=== PATIENT | female | born 1945 | race Caucasian/White ===

== ENCOUNTER 2022-01-09 10:02 | Inpatient (IN) | payer MEDICARE, SELFPAY ==
[2022-01-09] VITALS (40 sets, daily range): BP systolic 77–121; BP diastolic 32–105; PULSE 56–139; RESP 15–35; TEMP 35.6–38.1; O2SAT 89–97
--- NOTE | 2022-01-09 10:00 | DI.RAD_ITS ---
Exam(s) XR PORTABLE CHEST AP EXAM: XR PORTABLE CHEST AP CLINICAL HISTORY: cough, COVID + TECHNIQUE: 2D digital imaging was performed of the chest. Two images were obtained. AP views were obtained. COMPARISON: No exams were available for comparison FINDINGS: MEDIASTINUM: Normal. HEART: Normal. PULMONARY VASCULATURE: Normal. LUNGS: There infiltrates seen in the lower lobes, right greater than left. PLEURAL SPACE: No pleural effusion or pneumothorax. BONE:Within normal limits for the patient's age. OTHER FINDINGS:Normal. IMPRESSION: Bilateral pulmonary infiltrates suspicious for pneumonia. DATA REPOSITORY: RADIATION DOSE DELIVERED:
--- NOTE | 2022-01-09 10:15 | RT.EKG_ITS ---
APPROVED REPORT Exam: Resting ECG Reason for Exam: sob Patient Location: E HR:75 bpm ECG Measurements Heart Rate 75 AXIS OK 128 P 9 QRSd 87 QRS 60 QT 412 T 98 QTc 459 Conclusion Sinus rhythm. Atrial premature complexes.. Low voltage, extremity leads. Nonspecific changes
--- NOTE | 2022-01-09 10:16 | W.ED.GENAD ---
Discharge Plan Disposition Patient Disposition: [facility] INPATIENT Condition: Improving Discharge Details Clinical Impression: Pneumonia due to COVID-19 virus Primary Care Provider: Unknown,Unknown ED Provider: Gold Waters Home Meds and New Rx's Prescriptions: No Action venlafaxine [Effexor] 75 mg Tablet 75 mg PO DAILY trazodone 50 mg Tablet 50 mg PO DAILY amiodarone 200 mg Tablet 200 mg PO DAILY montelukast 10 mg Tablet 10 mg PO DAILY furosemide 20 mg Tablet 20 mg PO DAILY gabapentin 300 mg Tablet 300 mg PO BID Eliquis 5 mg Tablet 5 mg PO BID metoprolol succinate 25 mg Capsule,Sprinkle,Er 24hr 25 mg PO DAILY Medical Decision Making 76-year-old female DuoNeb with a history of COPD, states she has 3 L of oxygen at home at nighttime but not during the day. She is visiting from her home in [place]. She is not vaccinated for COVID . She has noted 3 days of cough with congestion and mild production of sputum. Today noted increased shortness of breath, she called the ambulance who noted hypoxia, placed on 6 L of oxygen and administered a DuoNeb with improvement. Patient arrives with temperature of 38.1. She is normotensive with a pulse in the 80s with elevated respiratory rate approximately 28-30 and a room air oxygenation of 91%. She is placed on 2 L nasal cannula. IV access established, screening labs including viral screen obtained. She is given DuoNeb updraft, Solu-Medrol, acetaminophen, fluids, and referred for chest x-ray. Patient states to me she has a history of COPD on 3 L home oxygen at night, and A. fib for which she is on Eliquis and amiodarone. She is currently in sinus rhythm. Chest x-ray reveals bilateral pulmonary infiltrates consistent with pneumonia. The patient's COVID test is positive. She has a white count of 12.5. Renal function is reassuring as are the remainder of her chemistries. She is somewhat improved with steroid and DuoNeb therapy, but has ongoing mild oxygen requirement of 1 L. Will discuss admission with hospitalist team. HPI General Mode of arrival: EMS. Date/Time Provider Initiated Documentation: 01/09/22 10:14. Limitations to Documentation: no limitations. Information obtained by: patient and EMS. History of Present Illness 76 year old F presents to the emergency department with the chief complaint of 3 days of cough, shortness of breath, positive COVID this am, described as moderate, and is localized to the chest. Patient reports no radiation. Patient started experiencing this day(s) and it has been intermittent. Rest improves symptom(s), Movement worsens symptoms . Patient notes cough, fever/chills and shortness of breath; denies chest pain, headaches, loss of appetite, nausea/vomiting, syncope and weakness. Patient did receive the following treatments prior to arrival, other (DuoNeb updraft in ambulance) Related Data Home Medications Medication Instructions Recorded Confirmed amiodarone 200 mg tablet 200 mg PO DAILY 01/09/22 01/09/22 apixaban 5 mg tablet (Eliquis) 5 mg PO BID 01/09/22 01/09/22 furosemide 20 mg tablet 20 mg PO DAILY 01/09/22 01/09/22 gabapentin 300 mg tablet 300 mg PO BID 01/09/22 01/09/22 metoprolol succinate 25 mg capsule 25 mg PO DAILY 01/09/22 01/09/22 sprinkle, ext. release 24 hr montelukast 10 mg tablet 10 mg PO DAILY 01/09/22 01/09/22 trazodone 50 mg tablet 50 mg PO DAILY 01/09/22 01/09/22 venlafaxine 75 mg tablet 75 mg PO DAILY 01/09/22 01/09/22 Allergies Allergy/AdvReac Type Severity Reaction Status Date / Time No Known Allergies Allergy Unverified 01/09/22 10:14 General Stated Complaint: SOB DONOVAN: 2 Review of Systems Narrative: Not immunized for COVID. Lives in the [facility] [place]. Has history of A. fib, on Eliquis, history of COPD. See HPI. 8 systems reviewed and otherwise negative PFSH All Active Problems (Updated 01/09/22 @ 13:35 by Gold Waters MD) Pneumonia due to COVID-19 virus (Acute) Social History Smoking/Tobacco Use Status: Never Smoking risk assessment performed?: Yes Drug use: Never Substance use type: does not use Do you feel safe at home: Yes Do you feel safe in your relationship?: Yes Exam Narrative Exam Narrative: GEN: awake, alert, oriented 3. Pleasant, well groomed, interactive. HEAD: Normocephalic, atraumatic ENT: Mucous membranes moist, oropharynx unremarkable, External ear exam unremarkable EYES: PERRL, EOMI NECK: Full ROM, no GALO, no menigismus CHEST/RESP: Nontender, cough noted, end expiratory wheeze present bilat CARDIOVASCULAR: RRR, no murmur, rub wes. 2+ Rad pulse bilateral ABDOMEN: Soft, nontender, no mass. +Bowel sounds EXT: Full ROM, no edema, no rash Neuro: Grossly normal neurologic exam, conversant, interactive. Psych: Speech fluent, thoughts congruent, affect normal Course Vital Signs Vital signs: Vital Signs Temperature 38.1 C H 01/09/22 10:10 Pulse 80 01/09/22 10:10 Respiratory Rate 29 H 01/09/22 10:10 Blood Pressure 121/105 H 01/09/22 10:10 Pulse Oximetry 93 01/09/22 10:10 Temperature 38.1 C H 01/09/22 10:10 Temperature Source Skin 01/09/22 10:10 Pulse 80 01/09/22 10:10 Respiratory Rate 29 H 01/09/22 10:10 Blood Pressure 121/105 H 01/09/22 10:10 Blood Pressure Position Supine 01/09/22 10:10 Pulse Oximetry 93 01/09/22 10:10 Oxygen Delivery Method Nasal Cannula 01/09/22 10:10 Oxygen Flow Rate 2 01/09/22 10:10 Pain Level 8 01/09/22 10:10 Comment 01/09/22 10:10
[2022-01-09] MEDS: methylPREDNISolone SUCC 125 MG VIAL IVP (10:34)
[2022-01-09] MEDS: Normal Saline 1,000 ML 1000 ML IV (10:34)
[2022-01-09] MEDS: Acetaminophen 325 MG TAB 650 MG PO (10:35)
[2022-01-09] MEDS: Albuterol/Ipratropium 3 ML UPD VIAL UPD (10:36)
[2022-01-09 10:38] LABS: Abs Immature Grans 0.14 10^3/uL (0.0-0.06); Absolute Basophil Count 0.04 10^3/uL (0.0-0.2); Absolute Eosinophil Count 0.04 10^3/uL (0.0-0.7); Absolute Lymphocyte Count 0.78 10^3/uL (1.2-3.4); Absolute Monocyte Count 1.09 10^3/uL (0.1-0.8); Basophils % 0.3; Eosinophils % 0.3; HCT 38.3 % (36.0-46.0); HGB 12.1 g/dL (11.2-15.7); Immature Grans % 1.1; Lymphocytes % 6.2; MCH 29.4 pg (27.0-33.0); MCHC 31.6 % (32.0-36.0); MCV 93 fL (80-95); MPV 8.7 fL (8.0-11.0); Monocytes % 8.7; Neutrophils % 83.4; Platelet Count 228 10^3/uL (130-400); RBC 4.11 10^6/uL (3.93-5.22); RDW 14.6 % (11.7-14.6); RDW-SD 49.8 fL; WBC 12.52 10^3/uL (4.4-10.8)
[2022-01-09 10:39] LABS: Absolute Neutrophil Count 10.44 10^3/uL (1.2-6.7)
[2022-01-09 11:01] LABS: ALT 21 U/L (14-59); AST 13 U/L (15-37); Alkaline Phosphatase 73 U/L (46-116); Anion Gap 7.2 mmol/L (3-11); BUN 17 mg/dL (7-18); Bilirubin, Total 0.4 mg/dL (0.2-1.0); CO2 30.8 mmol/L (21.0-32.0); Calcium 8.8 mg/dL (8.5-10.1); Chloride 105 mmol/L (98-107); Estimated GFR 54.05 (mL/min/1.73m2); Glucose 162 mg/dL (74-106); Magnesium 2.1 mg/dL (1.8-2.4); Potassium 3.9 mmol/L (3.5-5.1); Sodium 143 mmol/L (136-145); Total Protein 6.1 g/dL (6.4-8.2); Troponin I < 50 ng/L (<or=60)
[2022-01-09 11:17] LABS: Influenza A PCR Negative (Negative); Influenza B PCR Negative (Negative); RSV PCR Negative (Negative)
[2022-01-09 11:24] LABS: COVID-19 PCR Positive (Negative); Source Nasopharynx
--- NOTE | 2022-01-09 13:46 | W.PM.HP.N ---
Date of service: 01/09/22 Time of Service: 17:45 Assessment and Plan Assessment and plan (1) Pneumonia due to COVID-19 virus: Status: Acute Assessment and plan: Admit to medical surgical floor with remdesivir, dexamethasone, scheduled combivent + prn albuterol, guaifenesin, vitamin C, D, zinc. Consider statin. Patient is already anticoagulation with apixaban - continue. Encourage IS/acapella. Check/trend CRP, procalcitonin, ferritin, d-dimer. (2) Hypoxia: Status: Acute Assessment and plan: As above (3) Atrial fibrillation: Assessment and plan: in NSR; on amiodarone, metoprolol, apixaban. Continue home management with the exception of increased dose of apixaban given COVID-19. (4) CHF (congestive heart failure): Assessment and plan: Suspected. The patient is not sure of the diagnosis, but is on furosemide at home. Will avoid IV hydration. MOnitor volume status. (5) DVT prophylaxis: Status: Acute Assessment and plan: On therapeutic apixaban dose (was on 2.5 mg PO BID for Afib prior to admission) (6) Discharge planning issues: Status: Acute Assessment and plan: Full code as confirmed by conversation with the patient. History of Present Illness History of Present Illness Chief Complaint: Shortness of breath Narrative: Ms Tidwell is a 76 year old female with PMHx of oxygen-dependent COPD (on 3L of O2 at night), as well as h/o Afib on anticoagulation with eliquis and on amiodarone and metoprolol, chronic back pain, depression, not vaccinated against COVID-19, who is traveling from [place] and presented to [facility] ED today w/ 3 days of shortness of breath, cough (sometimes productive and sometimes not), rhinorrhea, headache, R-sided back pain (worse with coughing), subjective fevers. Reportedly, her O2 sats were in high 80s at home on RA and was quite tachypneic. She is now on 1L of O2 by [place]. She received duonebs with improvement in symptoms. She tested positive for COVID-19 and agrees to stay to receive treatment. She is full code. Review of Systems All systems reviewed & are unremarkable except as noted in HPI and below PFSH All Active Problems (Updated 01/09/22 @ 18:38 by Darshana Sutton MD) Discharge planning issues (Acute) DVT prophylaxis (Acute) Hypoxia (Acute) Pneumonia due to COVID-19 virus (Acute) Medical History (Updated 01/09/22 @ 18:38 by Darshana Sutton MD) Atrial fibrillation CHF (congestive heart failure) COPD (chronic obstructive pulmonary disease) Depression Neuropathy Surgical History (Updated 01/09/22 @ 18:38 by Darshana Sutton MD) History of back surgery S/P appendectomy S/P cholecystectomy S/P partial colectomy S/P total hysterectomy and BSO (bilateral salpingo-oophorectomy) Family History (Updated 01/09/22 @ 18:40 by Darshana Sutton MD) Sister Diabetes Cancer breast Brother Diabetes Brother Diabetes Brother Diabetes Mother Hypertension Cancer breast Social History (Updated 01/09/22 @ 18:42 by Darshana Sutton MD) Smoking/Tobacco Use Status: Former Tobacco Use tobacco type: cigarettes Pack-years: 56 Counseling given: provider counseling Smoking risk assessment performed?: Yes Alcohol Intake: current Alcohol Intake frequency: a few times a week Alcohol type: hard liquor Substance use type: former substance user Date of last use: marijuana and marijuana Do you feel safe at home: Yes Do you feel safe in your relationship?: Yes Meds Allergies and Home Medications Allergies Allergy/AdvReac Type Severity Reaction Status Date / Time No Known Allergies Allergy Unverified 01/09/22 10:14 Home Medications Medication Instructions Recorded Confirmed Type albuterol sulfate 2.5 mg/3 mL 2.5 mg inhalation Q6H PRN PRN 01/09/22 01/09/22 History (0.083 %) solution for nebulization Shortness Of Breath albuterol sulfate 90 mcg/actuation 2 inh inhalation Q4H PRN PRN 01/09/22 01/09/22 History aerosol inhaler amiodarone 200 mg tablet 200 mg PO DAILY 01/09/22 01/09/22 History apixaban 2.5 mg tablet (Eliquis) 2.5 mg PO BID 01/09/22 01/09/22 History fluticasone fur. 100 mcg-umeclid 1 ea inhalation DAILY 01/09/22 01/09/22 History 62.5 mcg-vilant 25 mcg inhalat.powder (Trelegy Ellipta) furosemide 20 mg tablet 20 mg PO DAILY 01/09/22 01/09/22 History gabapentin 300 mg capsule 600 mg PO QID 01/09/22 01/09/22 History metoprolol succinate 25 mg capsule 25 mg PO DAILY 01/09/22 01/09/22 History sprinkle, ext. release 24 hr montelukast 10 mg tablet 10 mg PO DAILY 01/09/22 01/09/22 History trazodone 50 mg tablet 50 mg PO HS 01/09/22 01/09/22 History venlafaxine 75 mg capsule,extended 75 mg PO DAILY 01/09/22 01/09/22 History release 24 hr Exam Narrative Exam Narrative: General: Pleasant forgetful elderly female who is not dyspneic, tachypneic or cyanotic on 1L of O2 by IA Neurological: A&Ox3, no focal deficits Psychiatric: Appropriate speech pattern/content Skin: Visible skin intact HEENT: Atraumatic, normocephalic, EOMI, dry MM, clear oropharynx, no submandibular or cervical lymphadenopathy, no goiter or JVD Cardiovascular: RRR, no m/r/g Lungs: coarse breath sounds B Gastrointestinal: soft, nontender, nondistended Genitourinary: deferred Extremities: no edema BLEs Results Imaging Additional studies: CXR: Bilateral pulmonary infiltrates suspicious for pneumonia.? EKG: NSR, PACs, HR 75, nonspecific ST-T changes, no acute ischemia Labs Result diagrams: 01/09/22 10:25 01/09/22 10:25 Labs: Laboratory Results - last 24 hr 01/09/22 01/09/22 01/09/22 10:25 10:25 10:25 WBC 12.52 H RBC 4.11 Hgb 12.1 Hct 38.3 MCV 93 MCH 29.4 MCHC 31.6 L RDW 14.6 Plt Count 228 MPV 8.7 Immature Gran % 1.1 Neutrophils % 83.4 Lymphocytes % 6.2 Monocytes % 8.7 Eosinophils % 0.3 Basophils % 0.3 Nucleated RBC % 0.0 Absolute Neutrophils 10.44 H Absolute Lymphocytes 0.78 L Absolute Monocytes 1.09 H Absolute Eosinophils 0.04 Absolute Basophils 0.04 PT 10.0 INR 1.0 Sodium 143 Potassium 3.9 Chloride 105 Carbon Dioxide 30.8 Anion Gap 7.2 BUN 17 Creatinine 1.0 Estimated GFR/1.73 m2 54.05 Glucose 162 H Calcium 8.8 Magnesium 2.1 Total Bilirubin 0.4 AST 13 L ALT 21 Alkaline Phosphatase 73 Troponin I < 50 Total Protein 6.1 L Albumin 3.0 L COVID-19 Source SARS-CoV-2 (PCR) Influenza Type A (PCR) Influenza Type B (PCR) RSV (PCR) 01/09/22 10:30 WBC RBC Hgb Hct MCV MCH MCHC RDW Plt Count MPV Immature Gran % Neutrophils % Lymphocytes % Monocytes % Eosinophils % Basophils % Nucleated RBC % Absolute Neutrophils Absolute Lymphocytes Absolute Monocytes Absolute Eosinophils Absolute Basophils PT INR Sodium Potassium Chloride Carbon Dioxide Anion Gap BUN Creatinine Estimated GFR/1.73 m2 Glucose Calcium Magnesium Total Bilirubin AST ALT Alkaline Phosphatase Troponin I Total Protein Albumin COVID-19 Source Nasopharynx SARS-CoV-2 (PCR) Positive A Influenza Type A (PCR) Negative Influenza Type B (PCR) Negative RSV (PCR) Negative Last Vital Signs Temp 38.1 C H 01/09/22 10:35 Pulse 67 01/09/22 13:02 Resp 23 01/09/22 13:02 BP 101/48 L 01/09/22 13:02 Pulse Ox 94 01/09/22 13:02
[2022-01-09 14:13] LABS: Lab Add On Test DONE; Troponin I < 50 ng/L (<or=60)
[2022-01-09] MEDS: REMDESIVIR 200 MG in Normal Saline 250 ML 250 MG IVPB (14:24)
[2022-01-09 14:29] LABS: C-Reactive Protein 13.14 mg/dL (0.0-0.3)
[2022-01-09 14:52] LABS: Ferritin 59 ng/mL (8-252)
[2022-01-09 15:13] LABS: D-Dimer 576 ng/mlFEU (<500)
[2022-01-09 16:22] LABS: Procalcitonin 0.2 ng/mL
[2022-01-09] MEDS: Acetaminophen 325 MG TAB PO (17:03)
[2022-01-09] MEDS: guaiFENesin 600 MG TABCR PO (20:56)
[2022-01-09] MEDS: Apixaban 5 MG TAB PO (20:56)
[2022-01-09] MEDS: Ascorbic Acid 500 MG TAB 1000 MG PO (20:56)
[2022-01-09] MEDS: Gabapentin 300 MG CAP 600 MG PO (20:58)
[2022-01-09] MEDS: Ipratropium/Albuterol 4 GM 120 PUFF INH IH (20:59)
[2022-01-09] MEDS: traZODone 50 MG TAB PO (23:03)
[2022-01-09] MEDS: Venlafaxine 75 MG CAPCR PO (23:03)
[2022-01-09] MEDS: Famotidine 20 MG TAB PO (23:03)
[2022-01-09] MEDS: Melatonin 3 MG TAB PO (23:03)
[2022-01-09] MEDS: Budesonide/Formoterol 80/4.5 6.9 GM 60 PUFF INH IH (23:45)
[2022-01-09] MEDS: diphenhydrAMINE 25 MG CAP PO (23:45)
[2022-01-10] VITALS (9 sets, daily range): BP systolic 106–140; BP diastolic 60–98; PULSE 48–74; RESP 16–18; TEMP 33.8–36.5; O2SAT 90–98
[2022-01-10] MEDS: Budesonide/Formoterol 80/4.5 6.9 GM 60 PUFF INH IH (07:42)
[2022-01-10] MEDS: Ipratropium/Albuterol 4 GM 120 PUFF INH IH ×2 (07:42→14:35)
--- NOTE | 2022-01-10 07:54 | RESPIRATORY ---
Pt states that she normally wears 3L O2 at night only. She said that she is not sure who her DME is. PT has never used an NIV machine at home.
[2022-01-10 08:07] LABS: Absolute Basophil Count 0.03 10^3/uL (0.0-0.2); Absolute Lymphocyte Count 0.74 10^3/uL (1.2-3.4); Absolute Monocyte Count 0.94 10^3/uL (0.1-0.8); Absolute Neutrophil Count 6.82 10^3/uL (1.2-6.7); Basophils % 0.3; HCT 36.2 % (36.0-46.0); HGB 11.8 g/dL (11.2-15.7); Immature Grans % 1.2; Lymphocytes % 8.6; MCH 30.1 pg (27.0-33.0); MCHC 32.6 % (32.0-36.0); MCV 92 fL (80-95); MPV 8.8 fL (8.0-11.0); Monocytes % 10.9; Platelet Count 235 10^3/uL (130-400); RBC 3.92 10^6/uL (3.93-5.22); RDW 14.6 % (11.7-14.6); RDW-SD 49.1 fL; WBC 8.63 10^3/uL (4.4-10.8)
[2022-01-10 08:22] LABS: Prothrombin Time 9.9 sec (9.3-11.0)
[2022-01-10 08:24] LABS: ALT 27 U/L (14-59); AST 16 U/L (15-37); Albumin 2.6 g/dL (3.4-5.0); Alkaline Phosphatase 64 U/L (46-116); Anion Gap 5.7 mmol/L (3-11); BUN 18 mg/dL (7-18); Bilirubin, Direct 0.1 mg/dL (0.0-0.2); Bilirubin, Total 0.2 mg/dL (0.2-1.0); C-Reactive Protein 15.46 mg/dL (0.0-0.3); CO2 29.3 mmol/L (21.0-32.0); CREATININE 0.8 mg/dL (0.55-1.02); Calcium 8.7 mg/dL (8.5-10.1); Chloride 108 mmol/L (98-107); Glucose 150 mg/dL (74-106); Magnesium 2.1 mg/dL (1.8-2.4); Potassium 3.9 mmol/L (3.5-5.1); Sodium 143 mmol/L (136-145); Total Protein 5.6 g/dL (6.4-8.2)
[2022-01-10] MEDS: Furosemide 20 MG TAB PO (08:32)
[2022-01-10] MEDS: Ascorbic Acid 500 MG TAB 1000 MG PO (08:32)
[2022-01-10] MEDS: Gabapentin 300 MG CAP 600 MG PO ×2 (08:33→11:36)
[2022-01-10] MEDS: Dexamethasone 4 MG TAB 6 MG PO (08:33)
[2022-01-10] MEDS: Amiodarone 200 MG TAB PO (08:33)
[2022-01-10] MEDS: Montelukast 10 MG TAB PO (08:33)
[2022-01-10] MEDS: Metoprolol CR 25 MG TABCR PO (08:33)
[2022-01-10] MEDS: Apixaban 2.5 MG TAB PO (08:33)
[2022-01-10] MEDS: guaiFENesin 600 MG TABCR PO (08:34)
[2022-01-10] MEDS: Cholecalciferol (Vitamin D3) 1,000 UNIT TAB 2000 UNITS PO (08:34)
[2022-01-10] MEDS: Normal Saline Flush 10 ML SYR IVP (08:34)
[2022-01-10] MEDS: Zinc Sulfate 220 MG TAB PO (08:34)
[2022-01-10 08:46] LABS: D-Dimer 764 ng/mlFEU (<500)
[2022-01-10 08:48] LABS: Ferritin 84 ng/mL (8-252)
--- NOTE | 2022-01-10 08:52 | PDOC.CMIN ---
- If Service Date Differs Date of service: 01/10/22 Time of Service: 08:52 Care Management Initial Assess REASON FOR HOSPITALIZATION:: Pneumonia due to COVID 19 with hypoxia PAST MEDICAL HISTORY/PAST SURGICAL HISTORY:: Medical History (Updated 01/09/22 @ 18:38 by Darshana Sutton MD). Atrial fibrillation. CHF (congestive heart failure). COPD (chronic obstructive pulmonary disease). Depression. Neuropathy. Surgical History (Updated 01/09/22 @ 18:38 by Darshana Sutton MD). History of back surgery. S/P appendectomy. S/P cholecystectomy. S/P partial colectomy. S/P total hysterectomy and BSO (bilateral salpingo-oophorectomy) PREVIOUS FUNCTIONAL STATUS/SOCIAL/FAMILY SUPPORTS:: Jami resides in [facility], her friend resides in [place], [place]. ADVANCE DIRECTIVES:: COVID Precautions Has patient been provided with info about the portal/API?: No Did the patient sign up for the portal?: No CODE STATUS:: Full Code INSURANCE COVERAGE / FINANCIAL ISSUES:: [facility] CURRENT HOME/COMMUNITY SERVICES/EQUIPMENT:: Home O2 PRIMARY CARE PHYSICIAN:: None local POTENTIAL DISCHARGE NEEDS:: Follow up appointments. PATIENT/FAMILY EDUCATION NEEDS:: Review discharge instructions, discuss Ask Me Three. ANTICIPATED BARRIERS TO DISCHARGE:: None identified. TRANSPORTATION:: Via private vehicle with friend. PLAN:: Jami will return home when ready per MD. She will resume home O2 and follow up with her community based providers. She will transport via private vehicle with a friend.
[2022-01-10] MEDS: REMDESIVIR 100 MG in Normal Saline 250 ML 250 MG IVPB (14:15)
--- NOTE | 2022-01-10 16:28 | DSE_ITS ---
Date of service: 01/10/22 Time of Service: 16:28 DS: Diagnosis Discharge Diagnosis (1) Pneumonia due to COVID-19 virus: Status: Acute (2) Hypoxia: Status: Resolved (3) Atrial fibrillation: (4) CHF (congestive heart failure): Discharge Plan Disposition Patient Disposition: HOME Condition: Improving Discharge Details Reason For Visit: Pneumonia Due to COVID-19 with Hypoxia Admit Date/Time: 01/09/22 13:36 Admit Provider: Darshana Sutton Attending Provider: Darshana Sutton Primary Care Provider: Unknown,Unknown Hospital Course Hospital Course: Ms Tidwell is a 76 year old female with PMhx of O2 dependent COPD (on 3L of O2 by [place] at home), Afib, question of CHF, chronic back pain, depression, who was not vaccinated against COVID-19 who was a patient on [facility] hospitalist service from 01/09/22 until 01/10/22 for COVID-19 with hypoxia during the day. She received dexamethasone, remdesivir, vitamin c, d, zinc, bronchodilators with resolution of day-time and ambulatory hypoxia. She is being discharged home today with three more days of prednisone (40 mg), as well as antitussives, vitamins, bronchodilators, and a pulse oximeter. She is instructed to monitor her O2 sats and to return to the hospital should they drop to 88% or lower or if she feels shorter of breath. Nursing did note that during her hospitalization the patient was briefly bradycardic to the 30s under unclear circumstances, but this is felt to be due to remdesivir. her PCP should consider doing extended cardiac monitoring to ensure that bradycardia does not recur at home. She is medically stable for discharge home today. Care for patient as well as completion of her discharge summary on day of discharge took 40 minutes. Home Meds and New Rx's Prescriptions: New melatonin 3 mg Tablet 3 mg PO HS PRN PRNQty: 0 0RF famotidine 20 mg Tablet 20 mg PO HS Qty: 20 0RF ascorbic acid (vitamin C) [Vitamin C] 500 mg Tablet 1,000 mg PO BID Qty: 28 0RF zinc sulfate [Zinc-220] 50 mg zinc (220 mg) Capsule 220 mg PO DAILY Qty: 7 0RF cholecalciferol (vitamin D3) 25 mcg (1,000 unit) Tablet 2,000 units PO DAILY Qty: 10 0RF guaifenesin [Mucus Relief ER] 600 mg Tablet Extended Release 12hr 600 mg PO BID PRN PRNQty: 10 0RF prednisone 20 mg tablet 40 mg PO DAILY Qty: 6 0RF benzonatate 100 mg capsule 100 mg PO TID PRN (Reason: cough) Qty: 20 0RF Continued trazodone 50 mg Tablet 50 mg PO HS amiodarone 200 mg Tablet 200 mg PO DAILY montelukast 10 mg Tablet 10 mg PO DAILY furosemide 20 mg Tablet 20 mg PO DAILY metoprolol succinate 25 mg Capsule,Sprinkle,Er 24hr 25 mg PO DAILY venlafaxine 75 mg capsule,extended release 24hr 75 mg PO DAILY Label Comments: TAKE 1 CAPSULE BY MOUTH EVERY DAY Eliquis 2.5 mg tablet 2.5 mg PO BID gabapentin 300 mg capsule 600 mg PO QID Label Comments: TAKE 2 CAPSULES BY MOUTH FOUR TIMES DAILY albuterol sulfate 2.5 mg /3 mL (0.083 %) Solution For Nebulization 2.5 mg inhalation Q6H PRN PRN (Reason: Shortness Of Breath) albuterol sulfate 90 mcg/actuation HFA aerosol inhaler 2 inh INHALATION Q4H PRN PRN Label Comments: INHALE 1 TO 2 PUFFS BY MOUTH EVERY 4 TO 6 HOURS NEEDED Trelegy Ellipta 100-62.5-25 mcg blister with device 1 ea INHALATION DAILY Label Comments: INHALE 1 PUFF BY MOUTH EVERY DAY Discharge Instructions Instructions: Benzonatate (By mouth), Prednisone (By mouth), Guaifenesin (By mouth), COVID-19 (Coronavirus Disease 2019) (DC) Additional Instructions: Finish your prednisone course - starting with the first dose tomorrow morning. Return to the hospital if your oxygen saturation drops below 88% and stays there on the pulse oximeter. Return to the hospital with any bleeding, chest pain, or worsening shortness of breath. Self-isolate for a total of 10 days from the beginning of your symptoms. Stand Alone Forms: Nursing Discharge Form Referrals: Unknown,Unknown [Primary Care Provider] - Activity:: Activity as Tolerated Equipment/Supplies:: pulse oximeter Diet:: As Tolerated Discharge Orders Discharge Orders: Discharge Order (Routine); Ordered 01/10/22 Ordered By: Darshana Sutton DS: Summary Time Spent with Patient providing and/or coordinating discharge services: Greater than 30 minutes Status at Discharge Functional status at discharge: independent ambulation Overall status at discharge: patient is progressing back to baseline Mental Status: mental status grossly normal Speech and Movement: speech and movement normal Mood: congruent mood Affect: normal affect Exam Narrative Exam Narrative: Patient was examined over the phone today due to her clinical improvement and diagnosis of COVID-19. She was A&Ox3, not dyspneic or tachypneic, appeared to be in good spirits. Psych Mental Status: mental status grossly normal Speech and Movement: speech and movement normal Mood: congruent mood Affect: normal affect DS: Data Vitals/I&O Vitals and I&O: Vital Signs Temperature 36 C L 01/10/22 16:15 Temperature Source Tympanic 01/10/22 16:15 Pulse 60 01/10/22 16:15 Pulse Rhythm Regular 01/10/22 10:25 Pulse 68 01/09/22 13:02 Respiratory Rate 18 01/10/22 16:15 Respiratory Effort Non-Labored 01/10/22 10:25 Respiratory Depth Normal 01/10/22 10:25 Respiratory Pattern Normal 01/10/22 04:03 Blood Pressure 140/60 01/10/22 16:15 Blood Pressure Mean 61 01/09/22 13:02 Blood Pressure Position Supine 01/09/22 10:10 Pulse Oximetry 94 01/10/22 16:15 Oxygen Delivery Method Room Air 01/10/22 16:15 Oxygen Flow Rate 0 01/10/22 16:15 Pain Level 0 01/10/22 08:29 Comment 01/09/22 20:50 Intake & Output 01/09/22 01/10/22 01/10/22 23:59 11:59 23:59 Intake Total 650 / 1650 240 / 490 250 / 490 Output Total 600 / 600 900 / 900 Balance 50 / 1050 -660 / -410 250 / -410 Weight 79.379 kg Intake: IV 250 / 1250 250 / 250 Oral 400 / 400 240 / 240 Output: Urine 600 / 600 900 / 900 Other: Urine Color Yellow Yellow Urine Appearance Clear Clear Urine Odor Normal Comment voids independently Voiding Methods Toilet Toilet Data Completed and Pending Completed studies during hospitalization [Text1]: CXR: Bilateral pulmonary infiltrates suspicious for pneumonia.? Labs on day of discharge: Labs from last 24 hours 01/10/22 01/10/22 01/10/22 07:45 07:45 07:45 WBC 8.63 RBC 3.92 L Hgb 11.8 Hct 36.2 MCV 92 MCH 30.1 MCHC 32.6 RDW 14.6 Plt Count 235 MPV 8.8 Immature Gran % 1.2 Neutrophils % 79.0 Lymphocytes % 8.6 Monocytes % 10.9 Eosinophils % 0.0 Basophils % 0.3 Nucleated RBC % 0.0 Absolute Neutrophils 6.82 H Absolute Lymphocytes 0.74 L Absolute Monocytes 0.94 H Absolute Eosinophils 0.00 Absolute Basophils 0.03 PT 9.9 INR 1.0 D-Dimer 764 H Sodium Potassium Chloride Carbon Dioxide Anion Gap BUN Creatinine Estimated GFR/1.73 m2 Glucose Calcium Magnesium Ferritin Total Bilirubin Conjugated Bilirubin AST ALT Alkaline Phosphatase C-Reactive Protein Total Protein Albumin 25-OH Vitamin D Total Pending 01/10/22 07:45 WBC RBC Hgb Hct MCV MCH MCHC RDW Plt Count MPV Immature Gran % Neutrophils % Lymphocytes % Monocytes % Eosinophils % Basophils % Nucleated RBC % Absolute Neutrophils Absolute Lymphocytes Absolute Monocytes Absolute Eosinophils Absolute Basophils PT INR D-Dimer Sodium 143 Potassium 3.9 Chloride 108 H Carbon Dioxide 29.3 Anion Gap 5.7 BUN 18 Creatinine 0.8 Estimated GFR/1.73 m2 >= 60.00 Glucose 150 H Calcium 8.7 Magnesium 2.1 Ferritin 84 Total Bilirubin 0.2 Conjugated Bilirubin 0.1 AST 16 ALT 27 Alkaline Phosphatase 64 C-Reactive Protein 15.46 H Total Protein 5.6 L Albumin 2.6 L 25-OH Vitamin D Total PFSH All Active Problems (Updated 01/10/22 @ 16:28 by Darshana Sutton MD) Discharge planning issues (Acute) DVT prophylaxis (Acute) Pneumonia due to COVID-19 virus (Acute) Medical History (Updated 01/10/22 @ 16:28 by Darshana Sutton MD) Atrial fibrillation CHF (congestive heart failure) COPD (chronic obstructive pulmonary disease) Depression Neuropathy Surgical History (Updated 01/09/22 @ 18:38 by Darshana Sutton MD) History of back surgery S/P appendectomy S/P cholecystectomy S/P partial colectomy S/P total hysterectomy and BSO (bilateral salpingo-oophorectomy) Family History (Updated 01/09/22 @ 18:40 by Darshana Sutton MD) Sister Diabetes Cancer breast Brother Diabetes Brother Diabetes Brother Diabetes Mother Hypertension Cancer breast Social History (Updated 01/09/22 @ 18:42 by Darshana Sutton MD) Smoking/Tobacco Use Status: Former Tobacco Use tobacco type: cigarettes Pack- years: 56 Counseling given: provider counseling Smoking risk assessment performed?: Yes Alcohol Intake: current Alcohol Intake frequency: a few times a week Alcohol type: hard liquor Substance use type: former substance user Date of last use: marijuana and marijuana Do you feel safe at home: Yes Do you feel safe in your relationship?: Yes
[2022-01-12 05:30] LABS: Vitamin D 25 Total 29.1 ng/mL (30-100)
== END 2022-01-10 18:17 | disposition home or self-care (01) | DRG 177 ==
LOC: ER 13:35 → MS 14:50
PROVIDERS: Admitting Provider Internal Medicine; Emergency Provider Emergency Medicine; Visit Provider Internal Medicine
DX: U07.1 COVID-19 (principal); J12.82 Pneumonia due to coronavirus disease 2019; J44.0 Chronic obstructive pulmonary disease with (acute) lower respiratory infection; I48.91 Unspecified atrial fibrillation; Z79.01 Long term (current) use of anticoagulants; Z99.81 Dependence on supplemental oxygen; R09.02 Hypoxemia; I50.9 Heart failure, unspecified; G89.29 Other chronic pain; M54.9 Dorsalgia, unspecified; F32.A Depression, unspecified; R00.1 Bradycardia, unspecified; T37.5X5A Adverse effect of antiviral drugs, initial encounter; Z28.310 Unvaccinated for COVID-19; Z28.9 Immunization not carried out for unspecified reason; Z87.891 Personal history of nicotine dependence
CPT/HCPCS: 36415; 80048; 80053; 80076; 82306; 84145; 87637; 93005; 94618; 94640; 96360; 96365; 96375; 99284; 99285; 71045; 82728; 83735; 84484; 85025; 85379; 85610; 86140; 93010; 94667; 99223; 99239; J0248; J2930; J3490; J7620; J8540